=== PATIENT | male | born 1950 | race Caucasian/White ===

== ENCOUNTER 2016-10-14 13:00 | Outpatient (CLI) | payer OTHER | END 2016-10-14 13:01 | disposition home or self-care (01) | DX: N13.30 Unspecified hydronephrosis (principal); N23 Unspecified renal colic; R39.198 Other difficulties with micturition; R93.422 Abnormal radiologic findings on diagnostic imaging of left kidney ==

== ENCOUNTER 2016-11-11 13:01 | Outpatient (CLI) | payer OTHER | END 2016-11-11 13:02 | disposition home or self-care (01) | DX: N28.89 Other specified disorders of kidney and ureter (principal) ==

== ENCOUNTER 2017-08-16 07:30 | Outpatient (CLI) | payer MEDICARE, BC ==
--- NOTE | 2017-08-16 11:59 | Ultrasound Report ---
AORTA SCREEN: 08/16/2017 CLINICAL INDICATION: Family history of aneurysm, screening. TECHNIQUE: Real-time scanning was performed with market survey representative static images obtained. FINDINGS: The abdominal aorta is normal in caliber, measuring 2.7 cm proximally, 2.0 cm in the mid p ortion, and 1.8 cm distally. The iliacs are normal in caliber. No free fluid is present. IMPRESSION: NO EVIDENCE OF ABDOMINAL AORTIC ANEURYSM. JOB #: [id number] EXT JOB #:[id number]
== END 2017-08-16 07:31 | disposition home or self-care (01) ==
LOC: DI 07:30
PROVIDERS: ATTEND Internal Medicine
DX: Z13.6 Encounter for screening for cardiovascular disorders (principal)
CPT/HCPCS: 76706

== ENCOUNTER 2017-11-25 15:04 | Emergency (ER) | payer MEDICARE, BC ==
[2017-11-25 15:24] VITALS: BP 151/83
[2017-11-25 15:39] LABS: BILIRUBIN,URINE NEGATIVE (NEGATIVE); GLUCOSE, URINE (UA) NEGATIVE (NEGATIVE); KETONES,URINE (UA) NEGATIVE (NEGATIVE); LEUKOCYTE ESTERASE, URINE NEGATIVE (NEGATIVE); NITRITE,URINE NEGATIVE (NEGATIVE); OCCULT BLOOD,URINE TRACE-INTA (NEGATIVE); PH,URINE 5.5 PH (5.0-7.5); PROTEIN,URINE NEGATIVE (NEGATIVE); UROBILINOGEN,URINE 0.2 (NORMAL) E.U./dL (NORMAL)
[2017-11-25 15:43] LABS: CLARITY,URINE CLEAR (CLEAR)
[2017-11-25] MEDS ORDERED: oxyCOD/ACETAMIN 5 MG/325 MG TABLET PO STA (16:17)
[2017-11-25] MEDS ORDERED: KETOROLAC 60 MG/2 ML VIAL IM STA (16:17)
--- NOTE | 2017-11-25 16:21 | ED Physician Documentation ---
PD HPI ABD PAIN - Stated complaint Stated Complaint: L SIDE PX - Chief complaint Chief Complaint: Abd Pain - History obtained from History obtained from: Patient, Family - History of Present Illness Timing - onset: Other (67-year-old gent with history of renal colic 2 developed urinary frequency about a week ago but over the last few days has had intermittent but at times severe left flank pain with mild nausea but no vomiting. Pain is tolerable now but was very bad on the way in here. No gross hematuria.) Review of Systems Constitutional: reports: Reviewed and negative Cardiac: reports: Reviewed and negative Respiratory: reports: Reviewed and negative GI: denies: Abdominal Pain, Constipation, Diarrhea, Hematemesis, Bloody / black stool : reports: Frequency. denies: Dysuria PD PAST MEDICAL HISTORY - Past Medical History Cardiovascular: Hypertension Respiratory: None Neuro: None Endocrine/Autoimmune: None Psych: None Musculoskeletal: Osteoarthritis - Present Medications Home Medications: Ambulatory Orders Medication Instructions Recorded Confirmed Amlodipine Besylate [Norvasc] BID 11/25/17 HYDROcod/ACETAM 5/325 [[place] 5/325] 1 - 2 ea PO Q6H PRN #15 tablet 11/25/17 Propranolol [Inderal] BID 11/25/17 Tamsulosin [Flomax] 0.4 mg PO DAILY #14 capsule 11/25/17 - Allergies Allergies/Adverse Reactions: Allergies Allergy/AdvReac Type Severity Reaction Status Date / Time niacin Allergy Edema Verified 11/25/17 15:24 PD ED PE NORMAL - Vitals Vital signs reviewed: Yes - General General: Alert and oriented X 3, No acute distress - Cardiac Cardiac: RRR, No murmur - Respiratory Respiratory: No respiratory distress, Clear bilaterally - Abdomen Abdomen: Normal bowel sounds, Soft, Non tender - Neuro Neuro: Alert and oriented X 3, Normal speech - Psych Psych: Normal mood, Normal affect Results - Vitals Vitals: Vital Signs - 24 hr 11/25/17 15:21 Temperature 36.9 C Heart Rate 61 Respiratory 16 Rate Blood Pressure 151/83 H O2 Saturation 98 Oxygen O2 Source Room air - Labs Labs: Laboratory Tests 11/25/17 15:20 Urine Color YELLOW Urine Clarity CLEAR Urine pH 5.5 Ur Specific [place] 1.025 Urine Protein NEGATIVE Urine Glucose (UA) NEGATIVE Urine Ketones NEGATIVE Urine Occult Blood TRACE-INTA Urine Nitrite NEGATIVE Urine Bilirubin NEGATIVE Urine Urobilinogen 0.2 (NORMAL) Ur Leukocyte Esterase NEGATIVE Ur Microscopic Review NOT INDICATED Urine Culture Comments NOT INDICATED - Rads (name of study) CT KUB Radiology: EMP read contemporaneously (2 mm stone at the left UVJ, left adrenal adenoma, no other obvious abnormality.) PD MEDICAL DECISION MAKING - ED course ED course: 67-year-old woman with history of renal colic presents with left flank pain, most likely renal colic but has not had CT imaging in the past and this was pursued with the same diagnosis. Departure - Departure Disposition: Home, Self Care Clinical Impression: Renal colic Condition: Good Record reviewed to determine appropriate education?: Yes Instructions: ED Stone Renal W Colic Prescriptions: HYDROcod/ACETAM 5/325 [[place] 5/325] 1 - 2 ea PO Q6H PRN #15 tablet PRN Reason: Pain Tamsulosin [Flomax] 0.4 mg PO DAILY #14 capsule Comments: If not improving in the next few days to week, follow-up with your doctor for a referral to a urologist. Return if worse. Drink plenty of fluids. Discharge Date/Time: 11/25/17 18:19
[2017-11-25] MEDS ORDERED: HYDROcod/ACET 5/325 Prepack 6 PO STA (18:06)
[2017-11-25] MEDS ORDERED: TAMSULOSIN 0.4 MG CAPSULE PO STA (18:06)
--- NOTE | 2017-11-25 18:30 | CT Report ---
EXAM: CT ABDOMEN AND PELVIS (CT KUB) EXAM DATE: 11/25/2017 05:47 PM. CLINICAL HISTORY: Left flank pain COMPARISONS: None. TECHNIQUE: Routine axial helical CT imaging was performed through the abdomen and pelvis without IV c ontrast. Reconstructions: Coronal and sagittal. In accordance with CT protocol optimization, one or more of the following dose reduction techniques w ere utilized for this exam: automated exposure control, adjustment of mA and/or KV based on patient s ize, or use of iterative reconstructive technique. FINDINGS: Lung Bases: Unremarkable. Right Kidney/Ureter: No stones, hydronephrosis or hydroureter. No significant perinephric stranding. Left Kidney/Ureter: There are small nonobstructing stones within the left kidney. There is mild to mo derate left hydronephrosis, hydroureter, and perinephric stranding secondary to a 0.2 cm stone at the left ureterovesicular junction. Other Solid Organs: There is a 2.0 x 1.5 cm left adrenal adenoma. The liver demonstrates no acute abn ormalities. There is borderline enlargement of the spleen. The pancreas is unremarkable. Gallbladder/Bile Ducts: Unremarkable. Peritoneal Cavity: No free fluid, free air or [place]is adenopathy. Bowel is grossly unremarkable. Pelvic Organs: No bladder stones or wall thickening. Noncontrast images of the visualized pelvic orga ns are unremarkable. Patient has undergone bilateral inguinal hernia repairs. Vasculature: Unremarkable. Other: None. IMPRESSION: There is mild to moderate left hydronephrosis, hydroureter, and perinephric stranding secondary to a 0.2 cm stone at the left ureterovesicular junction. 2. There is a left adrenal adenoma. 3. No acute gastrointestinal tract abnormalities are seen. [facility] Referring Provider Line: [phone] SITE ID: [id number]
== END 2017-11-25 18:19 | disposition home or self-care (01) ==
LOC: ED 15:04
DX: N23 Unspecified renal colic (principal); Z87.442 Personal history of urinary calculi; I10 Essential (primary) hypertension
CPT/HCPCS: 74176; 81003; 96372; 99284; A9270; 81001; 87086

== ENCOUNTER 2020-01-23 23:08 | Outpatient (CLI) | payer MEDICARE, BC | END 2020-01-23 23:59 | disposition critical access hospital (66) | LOC: EMS 23:08 | PROVIDERS: ATTEND Surgery | DX: R31.9 Hematuria, unspecified (principal); R42 Dizziness and giddiness | CPT/HCPCS: A0425; A0429 ==

== ENCOUNTER 2020-01-23 23:19 | Emergency (ER) | payer MEDICARE, BC ==
[2020-01-23] MEDS ORDERED: SODIUM CHLORIDE 0.9% 1,000 ML IV ONE (23:28)
--- NOTE | 2020-01-23 23:32 | ED Physician Documentation ---
PD HPI SYNCOPE - Stated complaint Stated Complaint: SYNCOPE - Chief complaint Chief Complaint: Neuro - History obtained from History obtained from: Patient - History of Present Illness Witnessed: Unwitnessed Timing - onset: How many minutes ago (45) Preceding symptoms: Diaphoresis, Light headed, Generalized weakness Contributing factors: Emotional upset, Just stood up Injury occurred: None Pain level max: 0 Pain level now: 0 Similar symptoms before: Has not had sx before Recently seen: Not recently seen - Additional information Additional information: BIBA for near-syncope. patient got out of bed to use bathroom and had episode of painless hematuria. at one point, he had to push in order to expel a clot via his urethra. he was appropriately anxious over this new-onset hematuria and, upon standing up, he became lightheaded, had generalized weakness, and diaphoresis, felt like he was going to pass out. he was able to slowly lie on the floor and then crawled to phone to call 911. the generalized weakness persisted until he was en route to ED. HR has been 40s, but patient says his baseline resting pulse is 50s Review of Systems Constitutional: reports: Sweats. denies: Fever, Chills, Myalgias Cardiac: reports: Reviewed and negative Respiratory: reports: Reviewed and negative GI: reports: Reviewed and negative : reports: Hematuria. denies: Dysuria, Frequency Musculoskeletal: reports: Reviewed and negative Neurologic: reports: Generalized weakness (resolved), Near syncope. denies: Headache PD PAST MEDICAL HISTORY - Past Medical History Cardiovascular: Hypertension Respiratory: None Endocrine/Autoimmune: None Psych: None Musculoskeletal: Osteoarthritis - Past Surgical History Past Surgical History: No - Present Medications Home Medications: Ambulatory Orders Medication Instructions Recorded Confirmed Amlodipine Besylate [Norvasc] BID 11/25/17 HYDROcod/ACETAM 5/325 [[place] 5/325] 1 - 2 ea PO Q6H PRN #15 tablet 11/25/17 Propranolol [Inderal] BID 11/25/17 Tamsulosin [Flomax] 0.4 mg PO DAILY #14 capsule 11/25/17 - Allergies Allergies/Adverse Reactions: Allergies Allergy/AdvReac Type Severity Reaction Status Date / Time niacin Allergy Edema Verified 01/23/20 23:27 - Social History Does the pt smoke?: No Smoking Status: Never smoker Does the pt drink ETOH?: No Does the pt have substance abuse?: No - Immunizations Immunizations are current?: Yes PD ED PE NORMAL - Vitals Vital signs reviewed: Yes - General General: Alert and oriented X 3, No acute distress, Well developed/nourished - HEENT HEENT: PERRL, EOMI, Moist mucous membranes - Neck Neck: Supple, no meningeal sign - Cardiac Cardiac: RRR, No murmur, No gallop, No rub - Respiratory Respiratory: No respiratory distress, Clear bilaterally - Abdomen Abdomen: Soft, Non tender - Back Back: No CVA TTP - Derm Derm: Normal color, Warm and dry Results - Vitals Vitals: Oxygen O2 Source Room air - EKG (time done) No standard instances Rate: Rate (enter#) (58) Rhythm: NSR [place]: LAD Intervals: Normal GA QRS: Poor R wave progression Ischemia: Normal ST segments - Labs Labs: Laboratory Tests 01/23/20 01/23/20 01/23/20 23:45 23:45 23:45 WBC 6.3 RBC 4.01 L Hgb 12.4 L Hct 37.0 L MCV 92.3 MCH 30.9 MCHC 33.5 RDW 12.4 Plt Count 146 MPV 12.0 H Neut # (Auto) 2.6 Lymph # (Auto) 2.7 [place] # (Auto) 0.6 Eos # (Auto) 0.3 Baso # (Auto) 0.1 Absolute Nucleated RBC 0.00 Nucleated RBC % 0.0 Sodium 140 Potassium 3.7 Chloride 108 Carbon Dioxide 24 Anion Gap 8.0 BUN 16 Creatinine 0.7 Estimated GFR (MDRD) 112 Glucose 111 H Calcium 8.2 L Total Bilirubin 0.6 AST 28 ALT 33 Alkaline Phosphatase 47 Troponin I High Sens 3.1 Total Protein 6.0 L Albumin 3.8 Globulin 2.2 Albumin/Globulin Ratio 1.7 Lipase 43 Urine Color Urine Clarity Urine pH Ur Specific [place] Urine Protein Urine Glucose (UA) Urine Ketones Urine Occult Blood Urine Nitrite Urine Bilirubin Urine Urobilinogen Ur Leukocyte Esterase Urine RBC Urine WBC Ur Squamous Epith Cells Urine Bacteria Ur Microscopic Review Urine Culture Comments 01/23/20 23:55 WBC RBC Hgb Hct MCV MCH MCHC RDW Plt Count MPV Neut # (Auto) Lymph # (Auto) [place] # (Auto) Eos # (Auto) Baso # (Auto) Absolute Nucleated RBC Nucleated RBC % Sodium Potassium Chloride Carbon Dioxide Anion Gap BUN Creatinine Estimated GFR (MDRD) Glucose Calcium Total Bilirubin AST ALT Alkaline Phosphatase Troponin I High Sens Total Protein Albumin Globulin Albumin/Globulin Ratio Lipase Urine Color RED/BLOODY Urine Clarity BLOODY Urine pH 6.5 Ur Specific [place] 1.015 Urine Protein Urine Glucose (UA) 100 H Urine Ketones 15 H Urine Occult Blood LARGE H Urine Nitrite Urine Bilirubin NEGATIVE Urine Urobilinogen Ur Leukocyte Esterase Urine RBC TNTC H Urine WBC 0-3 Ur Squamous Epith Cells NONE SEEN Urine Bacteria None Seen Ur Microscopic Review INDICATED Urine Culture Comments NOT INDICATED - Rads (name of study) cxr Radiology: Prelim report reviewed, See rad report CT IVP Radiology: Prelim report reviewed, See rad report PD MEDICAL DECISION MAKING - ED course Complexity details: reviewed results, re-evaluated patient, considered differential, d/w patient ED course: CT IVP findings suggest a mass near left kidney, differential would include renal cell carcinoma, urothelial cell tumor. I discussed this finding with Dr. Mac (nephrology), he recommends patient referral to urology. I then d/w patient these results, emphasizing that the findings are concerning but do not mean he has a tumor or malignancy, and such a diagnosis would require further study. I offered to contact urology, but patient prefers to call PMD on Sunday to work on such arrangements himself. He understands that expeditious f/u is important, but that emergently addressing these findings is not necessary nor indicated. He urinated a few times during ED stay and reported decreasing amount of blood in urine each time. Departure - Departure Disposition: 01 Home, Self Care Clinical Impression: Near syncope, Hematuria Condition: Good Instructions: ED Hematuria, ED Near Syncope Unkn Comments: As we discussed, there is a concerning finding on your CT scan: there appears to be a mass in, or adjacent to, the left kidney. This does not provide a specific diagnosis, but needs further testing to determine the nature of this finding and whether specific treatment(s) or procedures are indicated. Contact your primary care provider Sunday as soon as the office opens to discuss follow-up; this will likely involve referral to one or more specialists (such as a urologist or arnp). Discharge Date/Time: 01/24/20 03:20
[2020-01-23 23:56] LABS: BASOPHILS # (AUTO) 0.1 10^3/uL (0.0-0.1); BASOPHILS % (AUTO) 1.3 %; EOSINOPHILS # (AUTO) 0.3 10^3/uL (0.0-0.7); EOSINOPHILS % (AUTO) 4.1 %; HGB - HEMOGLOBIN 12.4 g/dL (14.0-18.0); LYMPHOCYTES # (AUTO) 2.7 10^3/uL (1.5-3.5); LYMPHOCYTES % (AUTO) 42.9 %; MEAN CORPUSCULAR HEMOGLOBIN 30.9 pg (27.0-31.0); MEAN CORPUSCULAR HGB CONC 33.5 g/dL (32.0-36.0); MEAN CORPUSCULAR VOLUME 92.3 fL (80.0-94.0); MONOCYTES # (AUTO) 0.6 10^3/uL (0.0-1.0); MONOCYTES % (AUTO) 9.3 %; NEUTROPHILS # (AUTO) 2.6 10^3/uL (1.5-6.6); NEUTROPHILS % (AUTO) 41.8 %; PLT - PLATELET COUNT 146 10^3/uL (130-450); RED BLOOD COUNT 4.01 10^6/uL (4.70-6.10); RED CELL DISTRIBUTION WIDTH 12.4 % (12.0-15.0); WHITE BLOOD COUNT 6.3 x10^3/uL (4.8-10.8)
[2020-01-24 00:04] LABS: GLUCOSE, URINE (UA) 100 mg/dL (NEGATIVE); KETONES,URINE (UA) 15 mg/dL (NEGATIVE); OCCULT BLOOD,URINE LARGE (NEGATIVE); PH,URINE 6.5 PH (5.0-7.5)
[2020-01-24 00:07] LABS: CLARITY,URINE BLOODY (CLEAR)
[2020-01-24 00:09] LABS: ALBUMIN 3.8 g/dL (3.2-5.5); ALBUMIN/GLOBULIN RATIO 1.7 (1.0-2.2); BILIRUBIN,TOTAL 0.6 mg/dL (0.2-1.0); CALCIUM 8.2 mg/dL (8.5-10.3); CREATININE 0.7 mg/dL (0.6-1.2)
[2020-01-24 00:17] LABS: BILIRUBIN,URINE NEGATIVE (NEGATIVE); ICTOTEST,URINE NEGATIVE
[2020-01-24 00:18] LABS: BACTERIA,URINE None Seen /HPF (None Seen); RBC,URINE TNTC /HPF (0-5); SQUAMOUS EPITHELIAL CELL,UR NONE SEEN (<= Few)
--- NOTE | 2020-01-24 00:45 | XRAY Report ---
Reason: near-syncope Procedure Date: 01/24/2020 Accession Number: [id number] / [id number] Procedure: XR - Chest 2 View X-Ray CPT Code: 01725 Final Report FULL RESULT: EXAM: CHEST RADIOGRAPHY EXAM DATE: 01/24/2020 12:20 AM. CLINICAL HISTORY: Near-syncope. COMPARISON: None. TECHNIQUE: 2 views. FINDINGS: The aorta is tortuous. The heart size is normal. Calcified pulmonary nodules are seen in the left midlung. Mild bibasilar airspace opacities are seen without focal consolidation, pleural effusion, or pneumothorax. Degenerative changes are seen in the right glenohumeral joint. IMPRESSION: Mild bibasilar airspace opacities, which may reflect atelectasis or atypical viral infection. Calcified left pulmonary nodules. [facility]
[2020-01-24] MEDS ORDERED: IOVERSOL 320 100 ML VIAL IVP ONE ×2 (01:15→03:00)
--- NOTE | 2020-01-24 02:09 | CT Report ---
Reason: painless hematuria Procedure Date: 01/24/2020 Accession Number: [id number] / [id number] Procedure: CT - IVP CPT Code: Final Report FULL RESULT: EXAM: CT ABDOMEN AND PELVIS WITHOUT AND WITH CONTRAST (CT IVP) EXAM DATE: 01/24/2020 01:54 AM. CLINICAL HISTORY: Painless hematuria. COMPARISONS: KUB 11/25/2017 5:47 PM. TECHNIQUE: Routine helical imaging was performed through the kidneys, ureters and bladder in the precontrast, postcontrast and delayed phase, using split bolus technique. IV Contrast: 100 mL Optiray 320. Reconstructions: Coronal and sagittal. In accordance with CT protocol optimization, one or more of the following dose reduction techniques were utilized for this exam: automated exposure control, adjustment of mA and/or KV based on patient size, or use of iterative reconstructive technique. FINDINGS: Lung Bases: Unremarkable. Liver: Stable likely small cyst in the anterior left lobe of the liver. Gallbladder/Bile Ducts: Unremarkable. Spleen: Normal. Pancreas: Normal. Adrenal Glands: Normal. Kidneys/Bladder: Right Kidney/Ureter: No renal or ureteral stones. No hydronephrosis or hydroureter. No masses. Left Kidney/Ureter: No renal or ureteral stones. There is a partially calcified mass distending the left upper pole collecting system, measuring approximately 3.5 x 3.7 x 1.9 cm. This may represent a renal cell carcinoma extending into the collecting system or a primary urothelial tumor. The left renal vein demonstrates normal enhancement. Bladder: No stones. No wall thickening or mass. Peritoneal Cavity/Bowel: Normal. No free fluid, free air or adenopathy. No masses or acute inflammatory process. Pelvic Organs: Visualized pelvic organs are unremarkable. Vasculature: No aneurysms or other significant abnormality. Bones: No significant abnormality. Other: None. IMPRESSION: Mass distending the upper pole collecting system of the left kidney, with calcifications. This may represent a primary urothelial tumor or a renal cell carcinoma extending into the collecting system. No renal calculi or bladder mass. No adenopathy appreciated. The left renal vein is patent. [facility]
[2020-01-24 03:27] VITALS: BP 141/79
== END 2020-01-24 03:20 | disposition home or self-care (01) ==
LOC: EDUNIT# → ED 23:19
DX: R55 Syncope and collapse (principal); R31.9 Hematuria, unspecified; I10 Essential (primary) hypertension
CPT/HCPCS: 36415; 71046; 74178; 80053; 81001; 83690; 84484; 85025; 93005; 96360; 99284; Q9967; 81003; 87086

== ENCOUNTER 2021-03-28 08:13 | Day surgery (SDC) | payer MEDICARE, BC ==
[2021-03-28] MEDS ORDERED: ceFAZolin 2 GM/50 ML 2 GM/50 ML BAG IV ONE (08:27)
[2021-03-28] MEDS ORDERED: LACTATED RINGERS 1,000 ML IV ONE ×4 (08:39→12:04)
[2021-03-28] MEDS ORDERED: fentaNYL 100 MCG/2 ML VIAL ONE (09:11)
[2021-03-28] MEDS ORDERED: MIDAZOLAM 2 MG/2 ML VIAL ONE (09:11)
[2021-03-28] MEDS ORDERED: LIDOCAINE-MPF 2% 5 ML VIAL ONE (09:12)
[2021-03-28] MEDS ORDERED: PROPOFOL 200 MG/20 ML VIAL IVP ONE (09:12)
[2021-03-28] MEDS ORDERED: BUPIVACAINE 0.5% PF 30 ML VIAL ONE (09:14)
[2021-03-28] MEDS ORDERED: LIDOCAINE 2%-EPI 1:100000 20 ML MDV ONE (09:14)
[2021-03-28] MEDS ORDERED: ePHEDrine 50 MG/ML VIAL IVP PRN (09:15)
[2021-03-28] MEDS ORDERED: METOCLOPRAMIDE 10 MG/2 ML VIAL IVP PRN (09:15)
[2021-03-28] MEDS ORDERED: NALOXONE 0.4 MG/ML VIAL IVP PRN (09:15)
[2021-03-28] MEDS ORDERED: ONDANSETRON 4 MG/2 ML VIAL IVP PRN ×2 (09:15→10:35)
[2021-03-28] MEDS ORDERED: HYDROmorphone 0.5 MG/0.5 ML SYRINGE IVP PRN (09:15)
[2021-03-28] MEDS ORDERED: ATROPINE ABBOJECT 1 MG/10 ML SYRINGE IVP PRN (09:15)
[2021-03-28] MEDS ORDERED: MORPHINE 2 MG/ML CARPUJECT IVP PRN (09:15)
[2021-03-28] MEDS ORDERED: fentaNYL 100 MCG/2 ML VIAL IVP PRN (09:15)
--- NOTE | 2021-03-28 09:15 | ANESTHESIA ---
Pre-Anesthesia VS, & Labs - Diagnosis left inguinal hernia - Procedure left inguinal hernia repair Vital Signs: Temp Pulse Resp BP Pulse Ox 36.5 C 55 L 14 135/78 H 100 03/28/21 08:42 03/28/21 08:42 03/28/21 08:42 03/28/21 08:42 03/28/21 08:42 Height: 5 ft 8 in Weight (kg): 62.8 kg Body Mass Index: 21.0 BMI Classification: Healthy weight - NPO >8 hours - Lab Results Lab results reviewed: Yes Home Medications and Allergies Home Medications: Ambulatory Orders Atorvastatin Calcium 40 mg PO QPM 03/24/21 Flaxseed Oil 1,000 mg PO DAILY 03/24/21 Amlodipine Besylate [Norvasc] 2.5 mg PO BID 11/25/17 Propranolol [Inderal] 10 mg PO BID 11/25/17 Atorvastatin Calcium 40 mg PO QPM 03/24/21 Flaxseed Oil 1,000 mg PO DAILY 03/24/21 Allergies/Adverse Reactions: Allergies Allergy/AdvReac Type Severity Reaction Status Date / Time niacin Allergy Edema, rash Verified 03/28/21 08:41 Anes History & Medical History - Anesthetic History Anesthesia Complications: reports: No previous complications Family history of Anesthesia Complications: Denies Family history of Malignant Hyperthermia: Denies - Medical History Cardiovascular: reports: Hypertension, High cholesterol Pulmonary: reports: None Gastrointestinal: reports: None Urinary: reports: Benign prostate hypertrophy, Kidney stones, Other (nephrectomy 2019) Musculoskeletal: reports: Chronic back pain, Other Endocrine/Autoimmune: reports: None Skin: reports: Eczema Smoking Status: Never smoker - Surgical History General: reports: Colonoscopy, Other Urologic: reports: Nephrectomy Exam General: Alert, Oriented x3, Cooperative, No acute distress Dental: WNL Mouth Openin Fingerbreadth Neck Mobility: Normal Mallampati classification: I Respiratory: Lungs clear, Normal breath sounds, No respiratory distress, No accessory muscle use Cardiovascular: Regular rate, Normal S1, Normal S2, No murmurs Plan Anesthesia Type: General Consent for Procedure(s) Verified and Reviewed: Yes Code Status: Attempt Resuscitation ASA classification: 2-Mild systemic disease Is this case an emergency?: No
[2021-03-28] MEDS ORDERED: ONDANSETRON 4 MG/2 ML VIAL ONE (09:36)
[2021-03-28] MEDS ORDERED: DEXAMETHASONE 4 MG/ML VIAL ONE (09:36)
[2021-03-28] MEDS ORDERED: WATER FOR INJECTION,STERILE 10 ML MC ONE (09:57)
[2021-03-28] MEDS ORDERED: ceFAZolin 1 GM VIAL ONE (09:57)
[2021-03-28] MEDS ORDERED: LACTATED RINGERS 1,000 ML IV SCH (10:00)
--- NOTE | 2021-03-28 10:33 | OPERATIVE REPORT ---
Operative Report - General Procedure Date: 03/28/21 Planned Procedure: Repair of recurrent left inguinal hernia Pre-Op Diagnosis: Painful recurrent left inguinal hernia Procedure Performed: Repair of recurrent left inguinal hernia Post Op Diagnosis: Painful recurrent left inguinal hernia - Procedure Note Primary Surgeon: Mary Anesthesia Provider: ALEX Wahl Anesthesia Technique: General LMA, Local Pathology: None Estimated Blood Loss (mL): 10 Findings: Recurrence between the existing plug and patch Complications: None apparent - Other Other Information/Narrative: After obtaining informed consent, the patient is brought the operating room and placed in the supine position on the operating table. Following successful induction of general endotracheal anesthesia, appropriate padding of all bony prominences, and placement of appropriate monitors, the left abdomen and groin were prepped and draped in the standard surgical fashion. A timeout was held per scope protocol. All elements of the surgical safety checklist were followed before, during, and after the procedure. We began the procedure by infiltrating a mixture of local anesthetics just medial to the anterior superior iliac spine on the left. We continued with further infiltration into the well-healed left lower quadrant incision as well as the tissue superiorly and inferiorly to that point.The existing incision was then reopened sharply and carried down through the skin and subcutaneous tissue. We immediately encountered hernia sac in the center of the inguinal canal. Careful dissection was undertaken to try to define the remaining portions of the the external beak aponeurosis as well as Sergio's fascia. The existing mesh was identified superior laterally and inferior medially the plug was identified. The recurrence was identified between these 2 portions of mesh. The sac was carefully defined and stripped from the cord structures. It was pushed back into the abdominal cavity.I elected not to try to take apart any portion of the existing repair that was holding.The spermatic cord was dissected free from surrounding structures. Careful evaluation was made for the ilioinguinal nerve. I did divide a scarred appearing structure that was in the correct position and appeared to be the nerve.Due to the alteration in anatomy, I cannot be absolutely certain this will be us successful neurectomy. I elected to use a large portion of Prolene hernia system mesh to repair the defect. This was dipped in Ancef solution and deployed into the defect between the 2 pieces of existing mesh.The hernia was in the indirect position.The mesh was straightened and flattened to the degree possible in the preperitoneal space. The overlying leaflet was then positioned as much as possible posterior to the external oblique aponeurosis. There were portions of both medially and laterally where I was not able to separate the aponeurosis from the existing mesh.A ascencion was created in the lateral aspect of the overlying leaflet for placement of the spermatic cord. This was sewn back together with interrupted Vicryl sutures.The mesh was then positioned posterior to the aponeurosis laterally and medially as far as possible posterior to the aponeurosis. At the pubic tubercle, I was not able to completely bury the mesh between the aponeurosis and the transversalis fascia. It was sewn into place to existing scar tissue and mesh at the pubic tubercle. It was tucked laterally and medially between existing portions of the aponeurosis that could be identified. It was then sewn into place with interrupted 0 Vicryl suture. The aponeurosis was reapproximated with interrupted 0 Vicryl suture. The incision was closed with Vicryl Monocryl suture was placed in the skin. All sponge, needle, and instrument counts were correct at conclusion the case. Patient was let awakened anesthesia without difficulty and taken to the postanesthesia care unit in good condition.
[2021-03-28] MEDS ORDERED: IBUPROFEN 600 MG TABLET PO PRN (10:35)
[2021-03-28] MEDS ORDERED: ACETAMINOPHEN 325 MG TABLET PO PRN (10:35)
[2021-03-28 11:53] VITALS: BP 115/71
[2021-03-28] MEDS ORDERED: ACETAMINOPHEN 325 MG TABLET PO ONE (11:58)
[2021-03-28] MEDS ORDERED: IBUPROFEN 600 MG TABLET PO ONE (11:59)
--- NOTE | 2021-03-28 12:07 | ANESTHESIA POST OP EVALUATION ---
Anesthesia Post Eval - Post Anesthesia Eval Vitals: Last Vital Signs Temp 36.5 C 03/28/21 11:52 Pulse 60 03/28/21 11:52 Resp 14 03/28/21 11:52 BP 115/71 03/28/21 11:52 Pulse Ox 98 03/28/21 11:52 CV Function Including HR & BP: Stable Pain Control: Satisfactory Nausea & Vomiting: Negative Mental Status: Baseline Respiratory Status: Airway Patent Hydration Status: Satisfactory Anesthesia Complications: None
== END 2021-03-28 08:14 | disposition home or self-care (01) ==
LOC: SDS 08:13
PROVIDERS: ATTEND Surgery
DX: K40.91 Unilateral inguinal hernia, without obstruction or gangrene, recurrent (principal); N40.0 Benign prostatic hyperplasia without lower urinary tract symptoms; Z90.5 Acquired absence of kidney
CPT/HCPCS: 49520; A9270; C1781; J0690; J7120

== ENCOUNTER 2021-04-22 12:17 | Outpatient (CLI) | payer MEDICARE, BC ==
[2021-04-22] MEDS ORDERED: IOVERSOL 320 100 ML VIAL IVP ONE ×2 (12:50→13:51)
[2021-04-22 13:20] LABS: CREATININE 1.1 mg/dL (0.6-1.2)
--- NOTE | 2021-04-22 15:09 | CT Report ---
PROCEDURE: IVP INDICATIONS: MALIGNANT TUMOR OF RENAL PELVIS CONTRAST: IV CONTRAST: Optiray 320 ml: 140 PO CONTRAST: *NO PO CONTRAST TECHNIQUE: After the administration of intravenous contrast, 5 mm thick sections acquired from the diaphragms to the symphysis. 5 mm thick coronal and sagittal reformats were acquired. For radiation dose reducti on, the following was used: automated exposure control, adjustment of mA and/or kV according to cheri ent size. COMPARISON: CT IVP of 01/24/2020. CT KUB 11/25/2017. FINDINGS: Image quality: Excellent. Lung bases: Punctate pulmonary nodule in the left lower lobe, unchanged since 2018. Heart size is nor mal. Urinary system: Left kidney is surgically absent. No mass in the left nephrectomy bed. Right kidney e nhances normally. No filling defect in the well-opacified right ureter. Bladder wall thickness is nor mal. No bladder calculus. Solid organs: Liver and spleen are normal in size and enhancement. Small cyst in the left lobe liver . No calcified gallstones. Biliary system is non dilated. Pancreas enhances normally. No adrenal n odules. Peritoneum and bowel: Bowel loops demonstrate normal wall thickness and caliber. No free fluid or a ir. Nodes and vessels: No retroperitoneal or mesenteric adenopathy by size criteria. Aorta and inferior vena cava are normal in size. Abdominal wall: Tiny fat-containing periumbilical hernia. Pelvis: No pathologic free pelvic fluid. No inguinal hernias or adenopathy. Bones: No suspicious bony lesions. No vertebral body compression fractures. IMPRESSION: 1. Left nephrectomy. No recurrent mass. 2. No adenopathy. 3. No filling defect within the well-opacified right ureter. Reviewed by: Joshua Bridges MD on 04/22/2021 3:07 PM PDT Approved by: Joshua Bridges MD on 04/22/2021 3:07 PM PDT Station ID: [id number]
== END 2021-04-22 12:18 | disposition home or self-care (01) ==
LOC: DI 12:17
PROVIDERS: ATTEND Urology
DX: Z90.5 Acquired absence of kidney (principal); C65.2 Malignant neoplasm of left renal pelvis
CPT/HCPCS: 36415; 74178; 82565; 84520; Q9967

== ENCOUNTER 2021-11-23 11:16 | Outpatient (CLI) | payer MEDICARE, BC ==
[2021-11-23 11:47] LABS: CREATININE 1.1 mg/dL (0.6-1.2)
[2021-11-23] MEDS ORDERED: IOVERSOL 320 100 ML VIAL IVP ONE (12:23)
--- NOTE | 2021-11-23 13:10 | CT Report ---
PROCEDURE: IVP INDICATIONS: MALIGNANT TUMOR OF RENAL PELVIS LEFT CONTRAST: IV CONTRAST: Optiray 320 ml: 140 PO CONTRAST: *NO PO CONTRAST TECHNIQUE: After the administration of oral and intravenous contrast, 5 mm thick sections acquired from the diap hragms to the symphysis. 5 mm thick coronal and sagittal reformats were acquired. For radiation dos e reduction, the following was used: automated exposure control, adjustment of mA and/or kV accordin g to patient size. COMPARISON: Prior studies dating back to January 24, 2020 FINDINGS: Inferior chest: No focal consolidation, pleural effusion, or pneumothorax. No cardiomegaly or perica rdial effusion. Gallbladder: The gallbladder is distended with a smooth thin wall. Biliary tree: No intra-or extrahepatic biliary ductal dilatation. Liver: The liver demonstrates normal enhancement, size, and contour. Spleen: Normal enhancement, size and morphology is seen. Pancreas: No contour deforming mass or inflammatory change. Adrenals: Normal size without masses. Kidneys/ureters: Left nephrectomy. The right kidney demonstrates normal size and morphology. No solid masses or hydronephrosis. Vasculature: No evidence of aneurysm or other significant vascular pathology. Lymphatic system: No pathologic enlargement by size criteria. GI/mesentery: No evidence of intestinal obstruction. Moderate stool burden throughout the colon. Norm al appearance of the appendix. Peritoneum/Retroperitoneum: No free intraperitoneal gas or large collection. Urinary bladder: The urinary bladder is distended with a smooth thin wall. Pelvic organs: Enlargement of prostate measuring 4.7 cm in transverse dimension. Bones/soft tissues: No acute osseous abnormality. A 5.3 x 1.2 x 3.8 cm, lobulated lesion overlies the sacrum with foci of calcification, which is nonspecific but may reflect a epidermal inclusion cyst. IMPRESSION: 1.No significant abnormality. Reviewed by: Edson Tavarez MD on 11/23/2021 1:08 PM [facility] Approved by: Edson Tavarez MD on 11/23/2021 1:08 PM PST Station ID: [id number]
== END 2021-11-23 11:17 | disposition home or self-care (01) ==
LOC: LAB 11:16
PROVIDERS: ATTEND Urology
DX: C65.2 Malignant neoplasm of left renal pelvis (principal)
CPT/HCPCS: 36415; 74178; 82565; 84520; Q9967

== ENCOUNTER 2023-04-23 07:57 | Outpatient (CLI) | payer MEDICARE, BC ==
[~2023-04-23 07:57] MED LIST: GADOBUTROL 15 MMOL/15 ML VIAL ONE
[2023-04-23 08:29] LABS: CREATININE 1.1 mg/dL (0.6-1.3)
[2023-04-23] MEDS ORDERED: GADOBUTROL 7.5 MMOL/7.5 ML VIAL ONE (11:07)
[2023-04-23] MEDS ORDERED: GADOBUTROL 10 MMOL/10 ML VIAL IVP ONE (12:35)
--- NOTE | 2023-04-25 19:20 | MRI Report ---
PROCEDURE: MRCP W/WO INDICATIONS: OBSTRUCTION OF BILE DUCT CONTRAST: gadavist 6.2ml TECHNIQUE: Coronal ultra fast SE through the abdomen, axial 2-D spoiled GE in- and [id number], and breath-hold T2 FSE with fat saturation through the biliary system and pancreas. Oblique coronal and axial thin- slice ultra fast SE, radial thick-slab ultra fast SE centered on the extrahepatic bile ducts. COMPARISON: CT abdomen pelvis 11/23/2021 FINDINGS: Image quality: Excellent. Gallbladder: No stones or wall thickening. Biliary tree: The greatest dimension of the common bile duct measures 7 mm. Pancreas: No pancreatic mass. Measures approximately 2 mm. Lung bases and heart: Unremarkable. Liver: Nonenhancing T2 hyperintensities are present within the left lobe suggestive of cysts. Spleen: No splenomegaly. Adrenals: No adrenal nodule. Kidneys and ureters: No hydronephrosis. No renal cystic lesion which requires follow up. No solid mas s. Bowel and peritoneum: No bowel distension. No pathologic free fluid. Lymph nodes: No central or retroperitoneal adenopathy. Vessels: No infrarenal aortic aneurysm. Bones: No aggressive osseous abnormality. Other: No significant ventral hernia. IMPRESSION: No gross intra or extrahepatic biliary dilation. Common bile duct at greatest dimension measures 7 mm . Gallbladder is unremarkable. Reviewed by: Leah Gonzalez MD on 04/25/2023 7:19 PM PDT Approved by: Leah Gonzalez MD on 04/25/2023 7:19 PM PDT Station ID: [id number]
== END 2023-04-23 07:58 | disposition home or self-care (01) ==
LOC: LAB 07:57
PROVIDERS: ATTEND Internal Medicine
DX: K83.1 Obstruction of bile duct (principal)
CPT/HCPCS: 36415; 74183; 82565; A9585